=== PATIENT | male | born 1975 | race Caucasian/White ===

== ENCOUNTER 2017-03-29 08:21 | Emergency (ER) | payer OTHER ==
[~2017-03-29] VITALS: Ht 177.8 cm; Wt 91.6 kg
[2017-03-29 08:38] VITALS: BP 157/89
[2017-03-29] MEDS ORDERED: NORCOTAB PO (09:06)
== END 2017-03-29 09:18 | disposition home or self-care (01) ==
LOC: M ED 08:21
DX: S46.212A Strain of muscle, fascia and tendon of other parts of biceps, left arm, initial encounter (principal); X50.0XXA Overexertion from strenuous movement or load, initial encounter; Y92.9 Unspecified place or not applicable; Y93.89 Activity, other specified; Y99.0 Civilian activity done for income or pay

== ENCOUNTER → 2019-02-22 | Outpatient (CLI) | payer SELFPAY ==
[~2019-02-22] MED LIST: HYDR-3715 PO
--- NOTE | 2019-02-23 09:53 | REP ---
RIGHT LOWER LEG, TWO VIEWS: There is no evidence of an acute fracture, dislocation or intrinsic bone disease. IMPRESSION: No fracture or dislocation. Electronically Signed by Kuldeep Villalobos MD 02/23/2019 11:17 P
== END ==
LOC: M ADAMS 17:14
PROVIDERS: ATTEND Physician Assistant
DX: M79.661 Pain in right lower leg (principal)